=== PATIENT | male | born 1995 ===

== ENCOUNTER 2018-10-19 11:11 | Emergency (ER) | payer OTHER ==
--- NOTE | 2018-10-19 12:19 | ED PDOC ---
HPI: Abdomen Time Seen by Provider: 10/19/18 11:25 Chief Complaint (Nursing): Abdominal Pain Chief Complaint (Provider): Abdominal Pain History Per: Patient History/Exam Limitations: no limitations Onset/Duration Of Symptoms: Persistent (x2 weeks) Current Symptoms Are (Timing): Still Present Additional Complaint(s): 23 year old male presents to the emergency department with a complaint of intermittent abdominal pain for the past 2 weeks. Patient states he, additional ly, felt hot, nausea, and pain to his testicles. No reports of vomiting, diarrhea, or constipation. Past Medical History Reviewed: Historical Data, Nursing Documentation, Vital Signs Vital Signs: Last Vital Signs Temp 97 F L 10/19/18 11:34 Pulse 74 10/19/18 11:34 Resp 18 10/19/18 11:34 BP 159/93 H 10/19/18 11:34 Pulse Ox 100 10/19/18 11:34 Primary Care Provider: FAMILY PROVIDER,NO - Medical History PMH: HTN (not on meds) Denies: Chronic Kidney Disease - Surgical History Surgical History: No Surg Hx - Family History Family History: States: Unknown Family Hx - Social History Current smoker - smoking cessation education provided: No Alcohol: None Drugs: Denies - Home Medications Home Medications: Ambulatory Orders Medication Instructions Recorded Naproxen [Naprosyn] 500 mg PO BID PRN #15 tablet 10/19/18 - Allergies Allergies/Adverse Reactions: Allergies Allergy/AdvReac Type Severity Reaction Status Date / Time No Known Allergies Allergy Verified 10/19/18 11:33 Review of Systems ROS Statement: Except As Marked, All Systems Reviewed And Found Negative Constitutional: Positive for: Fever (tactile) Gastrointestinal: Positive for: Nausea, Abdominal Pain. Negative for: Vomiting, Diarrhea, Constipation Genitourinary Male: Positive for: Scrotal Pain Physical Exam - Reviewed Nursing Documentation Reviewed: Yes Vital Signs Reviewed: Yes - Physical Exam Appears: Positive for: Non-toxic, No Acute Distress Head Exam: Positive for: ATRAUMATIC Skin: Positive for: Normal Color Eye Exam: Positive for: Normal appearance ENT: Positive for: Normal ENT Inspection Neck: Positive for: Normal Cardiovascular/Chest: Positive for: Regular Rate, Rhythm Respiratory: Positive for: Normal Breath Sounds. Negative for: Wheezing, Respiratory Distress Gastrointestinal/Abdominal: Positive for: Soft, Tenderness (suprapubic minimally). 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 Negative for: erythema, inguinal tenderness, lesions, testicular tenderness (R), testicular tenderness (L) Extremity: Positive for: Normal ROM (upper/lower) Neurological/Psych: Positive for: Awake, Alert, Normal Tone, Oriented - Laboratory Results Result Diagrams: 10/19/18 12:20 10/19/18 12:20 - ECG O2 Sat by Pulse Oximetry: 100 (RA) Pulse Ox Interpretation: Normal Medical Decision Making Medical Decision Making: Time: 1146 Initial Plan: * CT ABD/pelvis * Labs * US testes Accession No. : [id number] Patient Name / ID : SANDRA WEBB / [id number] Exam Date : 10/19/2018 12:54:40 ( Approved ) Study Comment : Sex / Age : M / 23Y Creator : damion lazcano Dictator : Master Lobo MD Sign Maintenance : Roller Skate Assembler : Master Lobo MD Approver2 : Report Date : 10/19/2018 13:27:28 My Comment : Date of service: 10/19/2018 HISTORY: Testicular pain TECHNIQUE: Realtime sonography through the scrotum with color and doppler flow. COMPARISON: None Available. FINDINGS: RIGHT TESTICLE: Measures 4.1 x 3.1 x 2.2 cm. Homogeneous echotexture. No mass. Normal flow demonstrated. RIGHT EPIDIDYMIS: Normal size, morphology and vascularity. No mass. LEFT TESTICLE: Measures 4.4 x 3.0 x 2.4 cm. Homogeneous echotexture. No mass. Normal flow demonstrated. LEFT EPIDIDYMIS: Normal size, morphology and vascularity.No mass. HYDROCELE: Minimal bilateral hydrocele VARICOCELE: None. OTHER FINDINGS: None. IMPRESSION: Minimal bilateral hydrocele. Otherwise unremarkable examination. No evidence of torsion or epididymo-orchitis. Accession No. : [id number] Patient Name / ID : SANDRA WEBB / [id number] Exam Date : 10/19/2018 14:13:34 ( Approved ) Study Comment : Sex / Age : M / 23Y Creator : Master Lobo MD Dictator : Master Lobo MD Sign Maintenance : Roller Skate Assembler : Master Lobo MD Approver2 : Report Date : 10/19/2018 15:06:48 My Comment : Date of service: 10/19/2018 PROCEDURE: CT Abdomen and Pelvis with contrast HISTORY: Suprapubic pain COMPARISON: None. TECHNIQUE: Contrast dose: 95 cc Omnipaque 300 Radiation dose: Total exam DLP = 314.16 mGy-cm. This CT exam was performed using one or more of the following dose reduction techniques: Automated exposure control, adjustment of the mA and/or kV according to patient size, and/or use of iterative reconstruction technique. FINDINGS: LOWER THORAX: Unremarkable. LIVER: Normal size, contour and attenuation. Multiple very small nonspecific rounded low-attenuation lesions in both lobes of the liver. No biliary dilatation. GALLBLADDER AND BILE DUCTS: Unremarkable. PANCREAS: Unremarkable. No gross lesion or ductal dilatation. SPLEEN: Unremarkable. ADRENALS: Unremarkable. No mass. KIDNEYS AND URETERS: Unremarkable. No hydronephrosis. No solid mass. VASCULATURE: Unremarkable. No aortic aneurysm. No aortic atherosclerotic calcification or mural plaque present. BOWEL: Unremarkable. No obstruction. No gross mural thickening. APPENDIX: Normal appendix. PERITONEUM: Unremarkable. No free fluid. No free air. LYMPH NODES: Unremarkable. No enlarged lymph nodes. BLADDER: Unremarkable. REPRODUCTIVE: Normal prostate BONES: No acute fracture. OTHER FINDINGS: None. IMPRESSION: No acute abnormality. Multiple very small nonspecific low-attenuation lesions throughout the liver. No evidence of urinary calculus or urinary obstruction. No evidence of cystitis, appendicitis or bowel obstruction. Scribe Attestation: Documented by Pily Zheng, acting as a scribe for Carlotta Veloz MD. Provider Scribe Attestation: All medical record entries made by the Scribe were at my direction and personally dictated by me. I have reviewed the chart and agree that the record accurately reflects my personal performance of the history, physical exam, med [facility] decision making, and the department course for this patient. I have also personally directed, reviewed, and agree with the discharge instructions and disposition. Disposition - Clinical Impression Clinical Impression: Hydrocele, bilateral, Liver lesion - Disposition Referrals: [facility] [Outside] Disposition: Routine/Home Disposition Time: 15:43 Condition: STABLE Prescriptions: Naproxen [Naprosyn] 500 mg PO BID PRN #15 tablet PRN Reason: Pain, Moderate (4-7) Instructions: Hydrocele Forms: [employer] (Mongolian) Print Language: URDU
[2018-10-19 12:37] LABS: URINE BILIRUBIN NEGATIVE (NEGATIVE); URINE BLOOD NEGATIVE (NEGATIVE); URINE CLARITY CLEAR (Clear); URINE COLOR STRAW (YELLOW); URINE GLUCOSE (UA) NEG (NEGATIVE); URINE LEUKOCYTE ESTERASE NEG Leu/uL (Negative); URINE PROTEIN NEGATIVE (NEGATIVE); URINE UROBILINOGEN 0.2-1.0 mg/dL (0.2-1.0)
[2018-10-19 12:39] LABS: ALB/GLOB RATIO 1.6 (1.0-2.1); ALBUMIN 4.8 g/dL (3.5-5.0); ALT/SGPT 43 U/L (21-72); AST/SGOT 31 U/L (17-59); BLOOD UREA NITROGEN 8 mg/dl (9-20); CALCIUM 9.5 mg/dL (8.4-10.2); GFR NON-AFRICAN AMERICAN > 60; PROTHROMBIN TIME 11.7 Seconds (9.8-13.1)
[2018-10-19 12:41] LABS: PARTIAL THROMBOPLASTIN TIME 40.1 Seconds (25.6-37.1)
[2018-10-19 12:42] LABS: BASO % 0.5 % (0.0-2.0); EOS % 12.8 % (0.0-4.0); HEMOGLOBIN 15.3 g/dL (12.0-18.0); LYMPH # 2.3 K/uL (1.0-4.3); LYMPH % 28.9 % (20.0-40.0); MEAN CELL VOLUME 89.3 fl (80.0-94.0); MEAN CORPUSCULAR HEMOGLOBIN 30.8 pg (27.0-31.0); MEAN CORPUSCULAR HGB CONC 34.5 g/dL (33.0-37.0); MEAN PLATELET VOLUME 9.8 fl (7.2-11.7); MONO # 0.5 K/uL (0.0-0.8); MONO % 6.1 % (0.0-10.0); NEUT # 4.2 K/uL (1.8-7.0); NEUT % 51.7 % (50.0-75.0); NRBC % 0.1 % (0.0-0.0); RBC 4.97 Mil/uL (4.40-5.90); RED CELL DISTRIBUTION WIDTH 13.1 % (11.5-14.5)
[2018-10-19] MEDS ORDERED: Sodium Chloride 0.9% 50 ML IV ONE (13:38)
[2018-10-19] MEDS ORDERED: Iohexol 300 100 ML IJ ONE (13:38)
--- NOTE | 2018-10-19 14:14 | US ---
Date of service: 10/19/2018 HISTORY: Testicular pain TECHNIQUE: Realtime sonography through the scrotum with color and doppler flow. COMPARISON: None Available. FINDINGS: RIGHT TESTICLE: Measures 4.1 x 3.1 x 2.2 cm. Homogeneous echotexture. No mass. Normal flow demonstrated. RIGHT EPIDIDYMIS: Normal size, morphology and vascularity. No mass. LEFT TESTICLE: Measures 4.4 x 3.0 x 2.4 cm. Homogeneous echotexture. No mass. Normal flow demonstrated. LEFT EPIDIDYMIS: Normal size, morphology and vascularity.No mass. HYDROCELE: Minimal bilateral hydrocele VARICOCELE: None. OTHER FINDINGS: None. IMPRESSION: Minimal bilateral hydrocele. Otherwise unremarkable examination. No evidence of torsion or epididymo-orchitis.
--- NOTE | 2018-10-19 15:10 | CT ---
Date of service: 10/19/2018 PROCEDURE: CT Abdomen and Pelvis with contrast HISTORY: Suprapubic pain COMPARISON: None. TECHNIQUE: Contrast dose: 95 cc Omnipaque 300 Radiation dose: Total exam DLP = 314.16 mGy-cm. This CT exam was performed using one or more of the following dose reduction techniques: Automated exposure control, adjustment of the mA and/or kV according to patient size, and/or use of iterative reconstruction technique. FINDINGS: LOWER THORAX: Unremarkable. LIVER: Normal size, contour and attenuation. Multiple very small nonspecific rounded low-attenuation lesions in both lobes of the liver. No biliary dilatation. GALLBLADDER AND BILE DUCTS: Unremarkable. PANCREAS: Unremarkable. No gross lesion or ductal dilatation. SPLEEN: Unremarkable. ADRENALS: Unremarkable. No mass. KIDNEYS AND URETERS: Unremarkable. No hydronephrosis. No solid mass. VASCULATURE: Unremarkable. No aortic aneurysm. No aortic atherosclerotic calcification or mural plaque present. BOWEL: Unremarkable. No obstruction. No gross mural thickening. APPENDIX: Normal appendix. PERITONEUM: Unremarkable. No free fluid. No free air. LYMPH NODES: Unremarkable. No enlarged lymph nodes. BLADDER: Unremarkable. REPRODUCTIVE: Normal prostate BONES: No acute fracture. OTHER FINDINGS: None. IMPRESSION: No acute abnormality. Multiple very small nonspecific low-attenuation lesions throughout the liver. No evidence of urinary calculus or urinary obstruction. No evidence of cystitis, appendicitis or bowel obstruction.
[2018-10-19 16:22] VITALS: BP 127/79; PULSE 65; RESP 16; TEMP 98.3
[2018-10-24 16:09] VITALS: O2SAT 100
== END 2018-10-19 15:55 | disposition home or self-care (01) ==
LOC: H.ER 11:11
DX: N43.3 Hydrocele, unspecified (principal); K76.9 Liver disease, unspecified; I10 Essential (primary) hypertension
CPT/HCPCS: 74177; 80053; 81003; 85025; 85610; 85730; 93975; 99283; Q9967